=== PATIENT | male | born 1980 | race Two or more races ===

== ENCOUNTER → 2023-01-23 | Outpatient (CLI) | payer OTHER ==
[2023-01-23 08:39] LABS: Urine WBC None Seen /hpf (0 - 3)
[2023-01-23 08:52] LABS: Basophils # (auto) 0.1 10 ^3/uL (0-0.2); Basophils % (auto) 0.9 % (0.0-2.0); Eosinophils # (auto) 0.4 10 ^3/uL (0-0.8); Eosinophils % (auto) 5.4 % (0.0-7.0); Hematocrit 44.9 % (41.0-53.0); Hemoglobin 15.4 g/dL (13.5-17.5); Lymphocytes # (auto) 2.3 10 ^3/uL (0.4-5.4); Mean Corpuscular Hemoglobin 31.7 pg (28.0-32.0); Mean Corpuscular Hgb Conc. 34.3 g/dL (32.0-36.0); Mean Corpuscular Volume 92.3 fL (80.0-100.0); Monocytes # (auto) 0.5 10 ^3/uL (0-1.3); Monocytes % (auto) 6.5 % (0.0-12.0); Neutrophils # (auto) 4.2 10 ^3/uL (1.6-8.6); Neutrophils % (auto) 56.2 % (37.0-80.0); Red Blood Cells 4.87 10^6/uL (4.5-5.90); White Blood Cell 7.5 10^3/uL (4.4-10.8)
[2023-01-23 08:58] LABS: Urine Bacteria NONE SEEN /hpf (None Seen); Urine Blood Negative /uL (Negative); Urine Clarity Clear (Clear); Urine Color Yellow (Yellow); Urine Protein, UAD Negative (Negative); Urine Specific Gravity 1.016 (1.001-1.035); Urine Urobilinogen Normal (Negative); Urine pH 5.5 (5.0-8.0)
[2023-01-23 09:35] LABS: Alanine Aminotransferase 56 U/L (7-40); Albumin 4.4 g/dL (3.2-4.8); Alkaline Phosphatase 96 U/L (46-116); Anion Gap 7.3 (5-15); Aspartate Aminotransferase 57 U/L (13-40); BUN/Creatinine Ratio 14.5 (10.0-20.0); Blood Urea Nitrogen 10 mg/dL (9-23); Calcium 9.4 mg/dL (8.5-10.1); Carbon Dioxide 25.7 mmol/L (20-30); Chloride 101 mmol/L (98-107); Cholesterol 208 mg/dL (< 200); Glucose 181 mg/dL (74-106); LDL Cholesterol 128 mg/dL (< 100); Potassium 4.2 mmol/L (3.5-5.1); Sodium 134 mmol/L (136-145); Triglycerides 370 mg/dL (< 150)
[2023-01-23 09:36] LABS: Bilirubin, Total 0.9 mg/dL (0.2-1.0); HDL Cholesterol 41 mg/dL (40-59); Total Protein 7.3 g/dL (5.7-8.2)
[2023-01-24 07:06] LABS: RPR Non Reactive (Non Reactive)
== END | disposition home or self-care (01) ==
LOC: LAB 08:24
PROVIDERS: ATTEND Internal Medicine
DX: Z00.00 Encounter for general adult medical examination without abnormal findings (principal); N48.89 Other specified disorders of penis
CPT/HCPCS: 36415; 80053; 80061; 81001; 83036; 84153; 85025; 86592

== ENCOUNTER → 2024-10-14 | Outpatient (CLI) | payer OTHER ==
[2024-10-14 07:51] LABS: Basophils # (auto) 0.1 10 ^3/uL (0-0.2); Eosinophils # (auto) 0.3 10 ^3/uL (0-0.8); Hematocrit 45.3 % (41.0-53.0); Hemoglobin 15.9 g/dL (13.5-17.5); Lymphocytes # (auto) 2.5 10 ^3/uL (0.4-5.4); Lymphocytes % (auto) 37.1 % (10.0-50.0); Mean Corpuscular Hemoglobin 32.4 pg (28.0-32.0); Mean Corpuscular Hgb Conc. 35.1 g/dL (32.0-36.0); Mean Corpuscular Volume 92.2 fL (80.0-100.0); Monocytes # (auto) 0.5 10 ^3/uL (0-1.3); Monocytes % (auto) 8.3 % (0.0-12.0); Neutrophils # (auto) 3.2 10 ^3/uL (1.6-8.6); Neutrophils % (auto) 48.6 % (37.0-80.0); Nucleated Red Blood Cells % 0.1 %; Platelet Count (auto) 222 10^3/uL (140-450); Red Blood Cells 4.92 10^6/uL (4.5-5.90); Red Cell Distribution Width 12.9 % (11.8-14.3); White Blood Cell 6.7 10^3/uL (4.4-10.8)
[2024-10-14 08:30] LABS: Albumin 4.8 g/dL (3.2-4.8); Alkaline Phosphatase 105 U/L (46-116); BUN/Creatinine Ratio 12.5 (10.0-20.0); Bilirubin, Total 0.4 mg/dL (0.2-1.0); Blood Urea Nitrogen 10 mg/dL (9-23); HDL Cholesterol 42 mg/dL (40-59); Total Protein 7.7 g/dL (5.7-8.2)
[2024-10-14 08:39] LABS: Alanine Aminotransferase 50 U/L (7-40); Aspartate Aminotransferase 51 U/L (13-40); Calcium 10.7 mg/dL (8.7-10.4); Cholesterol 254 mg/dL (< 200); Glucose 196 mg/dL (74-106); Triglycerides 815 mg/dL (< 150)
[2024-10-14 09:05] LABS: Anion Gap 9 (5-15); Carbon Dioxide 27 mmol/L (20-31); Chloride 100 mmol/L (98-107); Potassium 4.4 mmol/L (3.5-5.1)
== END | disposition home or self-care (01) ==
LOC: LAB 07:34
PROVIDERS: ATTEND Internal Medicine
DX: E11.9 Type 2 diabetes mellitus without complications (principal); E78.5 Hyperlipidemia, unspecified; Z12.11 Encounter for screening for malignant neoplasm of colon; Z00.00 Encounter for general adult medical examination without abnormal findings
CPT/HCPCS: 36415; 80053; 80061; 83036; 84403; 85025

== ENCOUNTER 2025-03-05 08:41 | Emergency (ER) | payer OTHER ==
[~2025-03-05] VITALS: Ht 167.6 cm; Wt 91.4 kg
--- NOTE | 2025-03-05 09:37 | ED.PDOC ---
GI ASSESSMENT HPI Comments A 45 YEAR OLD MALE PRESENTS TO THE ED WITH COMPLAINT OF RIGHT UPPER QUADRANT/RIB PAIN RADIATING TO HIS MID BACK THAT STARTED 2-3 MONTHS AGO. PATIENT REPORTS PAIN IS SHARP, CONSTANT AND WORSENS WITH MOVEMENT. PATIENT ALSO MENTIONS INTERMITTENT EPISODES OF DIZZINESS, PRESENTING SPONTANEOUSLY. PATIENT DENIES FEVER, CHILLS, CHEST PAIN, ABDOMINAL PAIN, NAUSEA, VOMITING, HEADACHE, OR OTHER COMPLAINTS. NO OTHER SYMPTOMS OR MODIFYING FACTORS AT THIS TIME. PATIENT IS ALERT, ORIENTED X 4, AND HAS STEADY GAIT. Chief Complaint: Rib Pain Time Seen by MD: 09:30 Reviewed Notes: Nurses Notes, Medications, Allergies Allergies: Coded Allergies: NO KNOWN ALLERGIES (Unverified , 03/05/25) Home Meds Active Scripts Hydrocodone-Acetaminophen (Hydrocodone Bitartrate/AC 10-325 mg) 1 Tab Tab, 1 TAB PO BID, #20 TAB Prov:ROSAJIT MCKEON 03/05/25 Information Source: Patient Mode of Arrival: Ambulatory Timing: Months Duration: Since onset Quality: Sharp, Colicky Vomitus: None Stool: Normal Severity: Moderate Recent: None Recent Hx of: None Pain Location: RUQ Modifying Factors: Nothing Associated sign and symptoms: Abdominal Pain Past Medical History PAST MEDICAL HISTORY: DM Surgical History: Denies all surgeries Constitutional: denies: chills, diaphoresis, fatigue, fever, malaise, sweats, weakness, others EENTM: denies: blurred vision, double vision, ear bleeding, ear discharge, ear drainage, ear pain, ear ringing, eye pain, eye redness, hearing loss, mouth pain, mouth swelling, nasal discharge, nose bleeding, nose congestion, nose pain, photophobia, tearing, throat pain, throat swelling, voice changes, others Respiratory: denies: cough, hemoptysis, orthopnea, SOB at rest, shortness of breath, SOB with excertion, stridor, wheezing, others Cardiovascular: denies: chest pain, dizzy spells, diaphoresis, Dyspnea on exertion, edema, irregular heart beat, left arm pain, lightheadedness, palpitations, PND, syncope, others Gastrointestinal: reports: abdominal pain; denies: abdomen distended, blood streaked bowels, constipated, diarrhea, dysphagia, difficulty swallowing, hematemesis, melena, nausea, poor appetite, poor fluid intake, rectal bleeding, rectal pain, vomiting, others Genitourinary: denies: burning, dysuria, flank pain, frequency, hematuria, incontinence, penile discharge, penile sore, pain, testicle pain, testicle swelling, urgency, others Neurological: reports: dizziness; denies: fainting, headache, left sided numbness, left sided weakness, numbness, paresthesia, pre-existing deficit, right sided numbness, right sided weakness, seizure, speech problems, tingling, tremors, weakness, others Musculoskeletal: denies: back pain, gout, joint pain, joint swelling, muscle pain, muscle stiffness, neck pain, others Integumetry: denies: bruises, change in color, change in hair/nails, dryness, laceration, lesions, lumps, rash, wounds, others Allergic/Immunocompromised: denies: Difficulty Healing, Frequent Infections, Hives, Itching, others Hematologic/Lymphatic: denies: anemia, blood clots, easy bleeding, easy bruising, swollen glands, others Endocrine: denies: excessive hunger, excessive sweating, excessive thirst, excessive urination, flushing, intolerance to cold, intolerance to heat, unexplained weight gain, unexplained weight loss, others Psychiatric: denies: anxiety, bipolar disorder, depression, hopeless, panic disorder, schizophrenia, sleepless, suicidal, others All Other Systems: Reviewed and Negative Physical Exam General Appearance: Mild Distress, Normal HEENT: Normal ENT Inspection, PERRL/EOMI, Pharynx Normal, TMs Normal Neck: Full Range of Motion, Non-Tender, Normal, Normal Inspection Respiratory: Chest Non-Tender, Lungs Clear, No Accessory Muscle Use, No Respiratory Distress, Normal Breath Sounds Cardiovascular: No Edema, No JVD, No Murmur, No Gallop, Normal Peripheral Pulses, Regular Rate/Rhythm Breast Exam: Deferred Gastrointestinal: No Organomegaly, No Pulsatile Mass, Normal Bowel Sounds, RUQ, Soft, Tenderness (ON RIGHT UPPER ABD, NO GUARDING AND REBOUND TENDERNESS. ) Genitalia: Deferred Pelvic: Deferred Rectal: Deferred Extremities: No calf tenderness, Normal capillary refill, Normal inspection, Normal range of motion, Non-tender, No pedal edema Musculoskeletal : Apperance: Normal Neurologic: Alert, precision optics technician II-XII nml as Tested, No Motor Deficits, Normal Affect, Normal Mood, No Sensory Deficits Cerebellar Function: Normal Reflexes: Normal Skin: Dry, Normal Color, Warm Peripheral Pulses: 2+ carotid (R), 2+ carotid (L) Lymphatic: No Adenopathy Was a procedure done? Was a procedure done?: No GI differential Dx Differential Diagnosis: Cholangitis, Cholecystitis, Hepatitis, Inflammatory BD X-Ray, Labs, Meds, VS Vital Signs Date Time Temp Pulse Resp B/P (MAP) Pulse Ox O2 Delivery O2 Flow Rate FiO2 03/05/25 13:01 98.4 67 18 111/72 (85) 95 98.4 03/05/25 13:01 67 18 95 Room Air 03/05/25 08:43 97.6 73 18 156/93 95 97.6 Lab Test 03/05/25 11:15 03/05/25 10:10 Range/Units Urine Color Yellow Yellow Urine Clarity Clear Clear Urine pH 5.0 5.0-9.0 Urine Specific [place] 1.023 1.001-1.035 Urine Protein Negative Negative Urine Ketones 1+ H Negative Urine Blood Negative Negative /uL Urine Nitrite Negative Negative Urine Bilirubin Negative Negative Urine Urobilinogen Normal Negative mg/dL Urine Leukocyte Esterase Negative Negative /uL Urine RBC 1 0 - 3 /hpf Urine Microscopic WBC < 1 0-3 /HPF Urine Squamous Epithelial Cells None seen <5 /hpf Urine Bacteria None seen None Seen /hpf Urine Mucus Few None Seen Urine Glucose 3+ H Normal mg/dL White Blood Count 7.1 4.4-10.8 10^3/uL Red Blood Count 4.86 4.5-5.90 10^6/uL Hemoglobin 15.5 13.5-17.5 g/dL Hematocrit 44.9 41.0-53.0 % Mean Corpuscular Volume 92.4 80.0-100.0 fL Mean Corpuscular Hemoglobin 31.9 28.0-32.0 pg Mean Corpuscular Hemoglobin Concent 34.5 32.0-36.0 g/dL Red Cell Distribution Width 13.0 11.8-14.3 % Platelet Count 251 140-450 10^3/uL Mean Platelet Volume 7.7 6.9-10.8 fL Neutrophils (%) (Auto) 43.7 37.0-80.0 % Lymphocytes (%) (Auto) 41.9 10.0-50.0 % Monocytes (%) (Auto) 7.8 0.0-12.0 % Eosinophils (%) (Auto) 5.8 0.0-7.0 % Basophils (%) (Auto) 0.8 0.0-2.0 % Neutrophils # (Auto) 3.1 1.6-8.6 10 ^3/uL Lymphocytes # (Auto) 3.0 0.4-5.4 10 ^3/uL Monocytes # (Auto) 0.6 0-1.3 10 ^3/uL Eosinophils # (Auto) 0.4 0-0.8 10 ^3/uL Basophils # (Auto) 0.1 0-0.2 10 ^3/uL Nucleated Red Blood Cells 0.2 % Sodium Level 139 136-145 mmol/L Potassium Level 5.0 3.5-5.1 mmol/L Chloride Level 105 98-107 mmol/L Carbon Dioxide Level 26 20-31 mmol/L Anion Gap 8 5-15 Blood Urea Nitrogen 7 L 9-23 mg/dL Creatinine 0.71 0.700-1.30 mg/dL Glomerular Filtration Rate Calc 115 >90 mL/min BUN/Creatinine Ratio 9.9 L 10.0-20.0 Serum Glucose 173 H 74-106 mg/dL Calcium Level 9.3 8.7-10.4 mg/dL Total Bilirubin 0.4 0.2-1.0 mg/dL Aspartate Amino Transferase (AST) 50 H 13-40 U/L Alanine Aminotransferase (ALT) 48 H 7-40 U/L Alkaline Phosphatase 87 46-116 U/L Total Protein 7.7 5.7-8.2 g/dL Albumin 4.7 3.2-4.8 g/dL Lipase 45 12-53 U/L Current Medications Medications (Trade) Dose Ordered Sig/Pato Route Start Time Stop Time Status Last Admin Ketorolac Tromethamine (Toradol Injection) 60 mg ONCE ONCE IM 03/05/25 09:45 03/05/25 09:46 DC 03/05/25 09:56 Acetaminophen/ Hydrocodone Bitart ([place] 10/325MG Tab) 1 tab ONCE ONCE PO 03/05/25 10:00 03/05/25 10:01 DC 03/05/25 10:04 PATIENT: EFRAIN CLARK AACCT: [id number]: [id number] : 1980 LOC: ER ROOM / BED: / AGE / SEX: 45 / M ADM STATUS: REG ER SERVICE [id number] ORDERING PHYSICIAN: AJIT SOMMER PROCEDURE(s): GBUS - GALLBLADDER REASON: RIGHT UPPER ABD PAIN TO MIDDLE BACK ORDER NUMBER(s): [id number], ACCESSION NUMBER(s): [id number] INDICATION: RIGHT UPPER ABD PAIN TO MIDDLE BACK TECHNIQUE: Multiple real-time sonographic images of the abdomen were obtained. COMPARISON: US LIVER on DOS: 11/17/24, US LIVER on DOS: 04/08/23 FINDINGS: Hepatic parenchyma is echogenic suggesting steatosis. The liver measures 16.79 cm. No intrahepatic biliary ductal dilatation is noted. The gallbladder wall measures 2.17 mm and is unremarkable. No gallstones or sludge is seen. 0.66 cm echogenic focus adjacent to the wall fundus of the gallbladder most likely a small polyp The common duct measures 4.08 mm and is unremarkable. No pericholecystic fluid is noted. The right kidney measures 12.76 cm. No hydronephrosis. The pancreas is not well visualized due to obscuration from bowel gas. The visualized portions of the IVC and aorta are grossly unremarkable. IMPRESSION: 1. 16.8 cm liver with parenchymal changes consistent with steatosis. 2. Small polyp in the fundus of the gallbladder. Appears to be 1 of many nonshadowing echogenic structures in the gallbladder which are all sub cm in size. 3. Gallbladder wall measures 0.22 cm; common bile measures 0.41 cm. ATED BY: EVA ROMERO Jr., DO DICTATED DATE/TIME: 03/05/251221 SIGNED BY: EVA ROMERO Jr., SIGNED DATE/TIME: 03/05/251221 CC: X-Ray, Labs, Meds, VS Comment EXTERNAL MEDICAL RECORDS REVIEWED: [NONE] INDEPENDENT HISTORIANS: [NONE] SOCIAL DETERMINANTS OF HEALTH: DM LABS ORDERED: CBC, CMP, LIPASE REVIEWED AND INTERPRETED RESULTS: NORMAL, MILD ELEVATED LIVER ENZYMES IMAGING ORDERED: CT ABD TREATMENTS ORDERED: TORADOL 60MG, NORCO 10MG PROCEDURES PERFORMED: NONE CRITICAL CARE TIME: NONE I HAVE DISCUSSED THE PATIENT WITH THE ATTENDING PHYSICIAN, DR. JAY, SHE AGREES WITH THE PATIENT'S PLAN OF CARE AND DISPOSITION. BASED ON HISTORY OF PRESENT ILLNESS, AND PHYSICAL EXAM, PATIENT WILL BE DISCHARGED HOME. DISCUSSED PLAN FOR DISCHARGE HOME WITH RX [NORCO /]. MEDICATION WARNINGS GIVEN. SHARED DECISION MAKING: DISCUSSED WITH PATIENT THAT THEIR WORKUP WAS NORMAL. PATIENT INSTRUCTED TO FOLLOW UP WITH PRIMARY CARE PROVIDER IN 1-2 DAYS FOR RE- EVALUATION OF SYMPTOMS. PATIENT VERBALIZES UNDERSTANDING TO RETURN TO ED FOR NEW OR WORSENING SYMPTOMS OR IF FOLLOW UP WITH PCP CANNOT BE OBTAINED. PATIENT FEELS COMFORTABLE GOING HOME AT THIS TIME. ALL QUESTIONS ADDRESSED AT TIME OF DISC HARGE. Time of 1ST Reevaluation: 09:36 Reevaluation 1ST: Unchanged Time of 2ND Reevaluation: 12:30 Reevaluation 2ND: Improved Patient Education/Counseling: Diagnosis, Treatment, Need For Follow Up Family Education/Counseling: Diagnosis, Treatment, Need For Follow Up Medical Screening: No EMC Exist At This Time SEPSIS Sepsis Screen Date sepsis recognized/suspect: Mar 05, 2025 Time Sepsis recognized/suspect: 0845 Recent Procedure: No On Antibiotic Therapy: No Respiratory Rate >20: No Heart Rate >90: No Temp<36 C (96.8 F) or >38.3 C: No SBP <90 or MAP <65 mmHG: No New Acute Mental Status Change: No Is the patient on CPAP, BIPAP,: No Physician Orders Ct Ab Pel Wo Con-No Oral Or Iv (03/05/25 09:34) Gallbladder (03/05/25 07:26) Vital Signs Date Time Temp Pulse Resp B/P (MAP) Pulse Ox O2 Delivery O2 Flow Rate FiO2 03/05/25 13:01 98.4 67 18 111/72 (85) 95 98.4 03/05/25 13:01 67 18 95 Room Air 03/05/25 08:43 97.6 73 18 156/93 95 97.6 Laboratory Tests Test 03/05/25 10:10 White Blood Count 7.1 10^3/uL (4.4-10.8) Medications Medications Dose Ordered Sig/Pato Route Start Time Stop Time Status Last Admin Dose Admin Acetaminophen/ Hydrocodone Bitart 1 tab ONCE ONCE PO 03/05/25 10:00 03/05/25 10:01 DC 03/05/25 10:04 Ketorolac Tromethamine 60 mg ONCE ONCE IM 03/05/25 09:45 03/05/25 09:46 DC 03/05/25 09:56 Departure 1 Departure Time of Disposition: 12:48 Impression: Primary Impression: Gallstones Additional Impression: Gallbladder polyp Disposition: HOME / SELF CARE / HOMELESS Condition: Stable Additional Instructions: F/U PCP IN 2 DAYS RECHECK. IF CONDITION BECOME WORSE, RETURN TO ED [facility]. e-Prescriptions Hydrocodone-Acetaminophen (Hydrocodone Bitartrate/AC 10-325 mg) 1 Tab Tab 1 TAB PO BID, #20 TAB Prov: AJIT SOMMER 03/05/25 Discharged With: Self, Spouse Critical Care Note Critical Care Time?: No Stability Stability form required: No I personally scribed for AJIT SOMMER ([email or web address]) on 03/05/25 at 09:37. Electronically submitted by Maia Waterman ([facility]). I personally scribed for AJIT SOMMER ([email or web address]) on 03/05/25 at 11:37. Electronically submitted by Maia Waterman ([facility]). AJIT SOMMER Mar 05, 2025 09:37
[2025-03-05] MEDS: KETOROLAC TROMETH 60MG/2ML VIAL IM ONE (09:56)
[2025-03-05] MEDS: HYDROcodone-ACET 10/325MG TAB PO ONE (10:04)
--- NOTE | 2025-03-05 10:24 | DVH ---
CLINICAL HISTORY: RIGHT UPPER ABD PAIN TO RIGHT MIDDLE BACK X 2 MONTHS TECHNIQUE: CT of the abdomen and pelvis was performed without IV contrast. This exam was performed ac cording to our departmental dose optimization program. Up-to-date CT equipment and radiation dose red uction techniques are utilized as appropriate. CTDI 21 DLP 1075 COMPARISON: None FINDINGS: Abdomen/Pelvis: The spleen, pancreas, adrenal glands, kidneys, gallbladder, liver, bladder, and prostate gland are gr ossly unremarkable. The abdominal aorta is normal in course and caliber. There are mild aortic atherosclerotic calcificat ions. There is no free intraperitoneal air or fluid. There is no enlarged abdominal pelvic lymph node. There is no bowel wall thickening or dilatation. The appendix is normal. There is a moderate amount o f stool in the colon. Other: The imaged lower thorax is unremarkable. No acute osseous abnormality is evident. There are bilateral L5 pars defects with no anterolisthesis. Impression: No acute noncontrast CT abnormality in the abdomen or pelvis. Constipation. Bilateral L5 pars defects.
[2025-03-05 10:44] LABS: Hematocrit 44.9 % (41.0-53.0); Hemoglobin 15.5 g/dL (13.5-17.5); Mean Corpuscular Hemoglobin 31.9 pg (28.0-32.0); Mean Corpuscular Volume 92.4 fL (80.0-100.0); Nucleated Red Blood Cells % 0.2 %
[2025-03-05 11:05] LABS: Albumin 4.7 g/dL (3.2-4.8); Alkaline Phosphatase 87 U/L (46-116); Anion Gap 8 (5-15); BUN/Creatinine Ratio 9.9 (10.0-20.0); Calcium 9.3 mg/dL (8.7-10.4); Carbon Dioxide 26 mmol/L (20-31); Chloride 105 mmol/L (98-107); Lipase 45 U/L (12-53); Potassium 5.0 mmol/L (3.5-5.1); Sodium 139 mmol/L (136-145); Total Protein 7.7 g/dL (5.7-8.2)
[2025-03-05 11:06] LABS: Bilirubin, Total 0.4 mg/dL (0.2-1.0)
[2025-03-05 11:12] LABS: Alanine Aminotransferase 48 U/L (7-40); Blood Urea Nitrogen 7 mg/dL (9-23); Glucose 173 mg/dL (74-106)
[2025-03-05 11:30] LABS: Urine Protein, UAD Negative (Negative)
--- NOTE | 2025-03-05 12:25 | DVH ---
INDICATION: RIGHT UPPER ABD PAIN TO MIDDLE BACK TECHNIQUE: Multiple real-time sonographic images of the abdomen were obtained. COMPARISON: US LIVER on DOS: 11/17/24, US LIVER on DOS: 04/08/23 FINDINGS: Hepatic parenchyma is echogenic suggesting steatosis. The liver measures 16.79 cm. No intr ahepatic biliary ductal dilatation is noted. The gallbladder wall measures 2.17 mm and is unremarkable. No gallstones or sludge is seen. 0.66 cm echogenic focus adjacent to the wall fundus of the gallbladder most likely a small polyp The common duct measures 4.08 mm and is unremarkable. No pericholecystic fluid is noted. The right kidney measures 12.76 cm. No hydronephrosis. The pancreas is not well visualized due to obscuration from bowel gas. The visualized portions of the IVC and aorta are grossly unremarkable. IMPRESSION: 1. 16.8 cm liver with parenchymal changes consistent with steatosis. 2. Small polyp in the fundus of the gallbladder. Appears to be 1 of many nonshadowing echogenic struc tures in the gallbladder which are all sub cm in size. 3. Gallbladder wall measures 0.22 cm; common bile measures 0.41 cm.
[2025-03-05] MEDS ORDERED: HYDR-4798 PO (12:49)
[2025-03-05 13:01] VITALS: BP 111/72; PULSE 67; RESP 18; TEMP 98.4; O2SAT 95
== END 2025-03-05 13:04 | disposition home or self-care (01) ==
LOC: ER 08:41
DX: K80.20 Calculus of gallbladder without cholecystitis without obstruction (principal); E11.9 Type 2 diabetes mellitus without complications; Z79.891 Long term (current) use of opiate analgesic
CPT/HCPCS: 36415; 74176; 76705; 80053; 81001; 83690; 85025; 96372; 99285; J1885

== ENCOUNTER → 2025-03-17 | Outpatient (CLI) | payer OTHER ==
[~2025-03-17] MED LIST: HYDR-4798 PO
[2025-03-17 12:34] LABS: Hepatitis B Surface Antigen Negative (Negative); Hepatitis C Antibody Negative (Negative)
[2025-03-18 08:07] LABS: Immunoglobulin A 464 mg/dL (90-386); Immunoglobulin G, Serum 1015 mg/dL (603-1613); Immunoglobulin M 85 mg/dL (20-172)
[2025-03-18 10:08] LABS: Anti-Nuclear Antibody Direct Negative (Negative); Anti-dsDNA Antibody <1 IU/mL (0-9); Antiscleroderma-70 Antibody <0.2 AI (0.0-0.9); Sjogren's Anti-SS-A Antibody <0.2 AI (0.0-0.9); Sjogren's Anti-SS-B Antibody <0.2 AI (0.0-0.9)
== END | disposition home or self-care (01) ==
LOC: LAB 07:46
PROVIDERS: ATTEND Internal Medicine
DX: E11.9 Type 2 diabetes mellitus without complications (principal); E78.5 Hyperlipidemia, unspecified; R74.02 Elevation of levels of lactic acid dehydrogenase [LDH]
CPT/HCPCS: 36415; 80074; 82043; 82103; 82105; 82390; 82570; 82728; 82784; 83970; 84443; 86160; 86225; 86235; 86376; 86431

== ENCOUNTER → 2025-03-22 | Outpatient (CLI) | payer OTHER | END | disposition home or self-care (01) | LOC: LAB 07:52 | PROVIDERS: ATTEND Internal Medicine | DX: E11.9 Type 2 diabetes mellitus without complications (principal); E78.5 Hyperlipidemia, unspecified; R74.01 Elevation of levels of liver transaminase levels | CPT/HCPCS: 82270; 82272 ==

== ENCOUNTER 2025-04-06 13:29 | Outpatient (CLI) | payer OTHER | END 2025-04-06 17:00 | disposition home or self-care (01) | LOC: LAB 13:29 | PROVIDERS: ATTEND Internal Medicine | DX: E11.9 Type 2 diabetes mellitus without complications (principal); E78.5 Hyperlipidemia, unspecified; R74.02 Elevation of levels of lactic acid dehydrogenase [LDH] | CPT/HCPCS: 82270; 82272 ==

== ENCOUNTER 2025-04-07 10:20 | Outpatient (CLI) | payer OTHER ==
[2025-04-07] MEDS ORDERED: STERILE WATER 10 ML ONE (13:37)
--- NOTE | 2025-04-07 15:15 | DVH ---
CLINICAL INFORMATION: Calculus of gallbladder. TECHNIQUE: 5 mCi of Choletec were administered intravenously. Images of the upper abdomen were obtained at multiple intervals up to a total time of 60 minutes. Subsequently, 2.0 mcg Kinevac was administered intravenously, as per protocol, and repeat dynamic anterior regional images of the liver were obtained over an additional 30 minutes. A region of interest was drawn around the gallbladder, from which a gallbladder ejection fraction was obtained. Time/activity profile curves were generated. COMPARISON: US GALLBLADDER on DOS: 03/05/25, US LIVER on DOS: 11/17/24, US LIVER on DOS: 04/08/23 FINDINGS: There is prompt gallbladder visualization. There is prompt excretion of activity from the biliary ductal system into the small bowel. There is no evidence of acute cholecystitis. The gallbladder ejection fraction is calculated to be 70%. IMPRESSION: 1. No scintigraphic evidence of acute cholecystitis. 2. Normal gallbladder ejection fraction.
== END 2025-04-07 17:00 | disposition home or self-care (01) ==
LOC: XYW 10:20 → EEVIPCON 10:20 → XYW 17:00
PROVIDERS: ATTEND Nurse Practitioner
DX: K80.20 Calculus of gallbladder without cholecystitis without obstruction (principal)
CPT/HCPCS: 78226; A9537